=== PATIENT | female | born 1960 | race Caucasian/White ===

== ENCOUNTER 2024-08-24 14:22 | Emergency (ER) | payer MEDICARE, MEDICAID | END 2024-08-24 15:15 | disposition home or self-care (01) | LOC: VM.ED 14:22 | DX: M96.831 Postprocedural hemorrhage of a musculoskeletal structure following other procedure (principal) | CPT/HCPCS: 99283 ==

== ENCOUNTER 2025-04-17 18:07 | Emergency (ER) | payer MEDICARE, MEDICAID | END 2025-04-17 20:23 | disposition home or self-care (01) | LOC: VM.ED 18:07 | DX: S62.655A Nondisplaced fracture of middle phalanx of left ring finger, initial encounter for closed fracture (principal); S43.401A Unspecified sprain of right shoulder joint, initial encounter; V86.49XA Person injured while boarding or alighting from other special all-terrain or other off-road motor vehicle, initial encounter; Y93.89 Activity, other specified | CPT/HCPCS: 73030-RT; 73140-F3; 99283 ==